=== PATIENT | female | born 1970 | race African-American/Black ===

== ENCOUNTER 2016-12-01 20:47 | Emergency (ER) | payer OTHER ==
[~2016-12-01] VITALS: Ht 172.7 cm; Wt 78.0 kg
[~2016-12-01 20:47] MED LIST: MACR100C PO; OXYC-360 PO; Z.0.NO CURRENT MEDS
[2016-12-01 20:54] VITALS: BP 184/106; PULSE 93; RESP 15; TEMP 98.8; O2SAT 98
[2016-12-01] MEDS ORDERED: AMLO10TA2 PO (21:27)
[2016-12-01 21:45] VITALS: BP 180/112; O2SAT 99
--- NOTE | 2016-12-01 21:57 | PD ---
HPI Chief Complaint: Chest Pain Time Seen by Provider: 21:53 Travel History International Travel<30 days: No Contact w/Intl Traveler<30days: No Traveled to known affect area: No History of Present Illness HPI 46-year-old female that presents to the ED for evaluation of chest pain. Per patient she's had this chest pain since yesterday. Per patient she also has a headache, sore throat, cough and congestion. Per patient also started yesterday. Per patient she has some chills as well and she took some cold medication with some relief. Per patient the chest pain is not constant but comes and goes. Cough doesn't really make it worse but does aggravated. Per patient she has no history of asthma but she does have a history of high blood pressure and smoking. She has no abdominal pain. Nausea or vomiting. 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 She has no allergies to medication. No trauma. No recent heavy lifting. No allergies to medication. No urinary or bowel movement issues. Pain per patient is 5 out of 10. PFSH Past Medical History Cancer: No Cardiovascular Problems: No Diabetes: No Diminished Hearing: No Glaucoma: No Hepatitis: No Hiatal Hernia: No Hypertension: Yes Medical other: No Respiratory: No Thyroid Disease: No ?: Not Past Surgical History Gynecologic Surgery: Yes (TUBAL LIG.) Hysterectomy: Yes (PARTIAL 2008) Oral Surgery: Yes (EXC. MASS LEFT NECK) Pacemaker: No Other Surgery: Yes Social History Alcohol Use: Yes (SCOIALY) Tobacco Use: Yes (08/03 PPD) Substance Use: No Allergies-Medications (Allergen,Severity, Reaction): Coded Allergies: No Known Allergies (Verified , 12/01/16) Reported Meds & Prescriptions Reported Meds & Active Scripts Active Tessalon Perles (Benzonatate) 100 Mg Cap 200 Mg PO TID PRN Tamiflu (Oseltamivir Phosphate) 75 Mg Cap 75 Mg PO BID 5 Days Reported Amlodipine (Amlodipine Besylate) 10 Mg Tab 10 Mg PO DAILY Review of Systems Except as stated in HPI: all other systems reviewed are Neg Physical Exam Narrative GENERAL: Well-nourished, well-developed patient in no apparent distress. SKIN: Warm and dry. HEAD: Atraumatic. Normocephalic. EYES: Pupils equal and round reactive to light and accommodation. No scleral icterus. No injection or drainage. ENT: No nasal bleeding or discharge. Mucous membranes pink and moist. TMs are clear with no sign of infection or perforation. No mastoid tenderness. Ear canals are intact bilaterally. No lymphadenopathy. Nostril mucosa is red and moist with clear mucus noted. No sinus tenderness to palpation noted. Tonsils are not enlarged or swollen. No ulvua Deviation. Tongue is midline. NECK: Trachea midline. No JVD. No meningeal signs noted CARDIOVASCULAR: Regular rate and rhythm. RESPIRATORY: No accessory muscle use. Clear to auscultation. Breath sounds equal bilaterally. GASTROINTESTINAL: Abdomen soft, non-tender, nondistended. Hepatic and splenic margins not palpable. MUSCULOSKELETAL: Extremities without clubbing, cyanosis, or edema. No obvious deformities. NEUROLOGICAL: Awake and alert. No obvious cranial nerve deficits. Motor grossly within normal limits. Five out of 5 muscle strength in the arms and legs. Normal speech. PSYCHIATRIC: Appropriate mood and affect; insight and judgment normal. Data Data Last Documented VS Vital Signs Date Time Temp Pulse Resp B/P Pulse Ox O2 Delivery O2 Flow Rate FiO2 12/01/16 21:45 180/112 12/01/16 21:45 99 Room Air 12/01/16 20:54 98.8 93 15 Orders Electrocardiogram (12/01/16 ) Electrocardiogram (12/01/16 21:29) Basic Metabolic Panel (Bmp) (12/01/16 21:29) Ckmb (Isoenzyme) Profile (12/01/16 21:29) Complete Blood Count With Diff (12/01/16 21:29) Magnesium (Mg) (12/01/16 21:29) Troponin I (12/01/16 21:29) Chest, Single Ap (12/01/16 21:29) Ecg Monitoring (12/01/16 21:29) Bilateral Bp Monitoring (12/01/16 21:29) Iv Access Insert/Monitor (12/01/16 21:29) Oximetry (12/01/16 21:29) Influenzae A/B Antigen (12/01/16 21:29) Oseltamivir (Tamiflu) (12/01/16 22:45) CKMB (12/01/16 21:38) CKMB% (12/01/16 21:38) Labs Laboratory Tests Test 12/01/16 21:38 White Blood Count 6.3 TH/MM3 Red Blood Count 3.99 MIL/MM3 Hemoglobin 12.4 GM/DL Hematocrit 36.1 % Mean Corpuscular Volume 90.4 FL Mean Corpuscular Hemoglobin 31.0 PG Mean Corpuscular Hemoglobin 34.3 % Concent Red Cell Distribution Width 14.2 % Platelet Count 263 TH/MM3 Mean Platelet Volume 7.9 FL Neutrophils (%) (Auto) 62.4 % Lymphocytes (%) (Auto) 21.0 % Monocytes (%) (Auto) 12.1 % Eosinophils (%) (Auto) 3.9 % Basophils (%) (Auto) 0.6 % Neutrophils # (Auto) 4.0 TH/MM3 Lymphocytes # (Auto) 1.3 TH/MM3 Monocytes # (Auto) 0.8 TH/MM3 Eosinophils # (Auto) 0.2 TH/MM3 Basophils # (Auto) 0.0 TH/MM3 CBC Comment DIFF FINAL Differential Comment Sodium Level 137 MEQ/L Potassium Level 3.7 MEQ/L Chloride Level 104 MEQ/L Carbon Dioxide Level 26.3 MEQ/L Anion Gap 7 MEQ/L Blood Urea Nitrogen 12 MG/DL Creatinine 0.72 MG/DL Estimat Glomerular Filtration 106 ML/MIN Rate Random Glucose 94 MG/DL Calcium Level 8.7 MG/DL Magnesium Level 2.1 MG/DL Total Creatine Kinase 119 U/L Troponin I LESS THAN 0.02 NG/ML MDM Medical Decision Making Medical Screen Exam Complete: Yes Emergency Medical Condition: Yes Medical Record Reviewed: Yes Interpretation(s) CBC & BMP Diagram 12/01/16 21:38 troponin negative Last Impressions Chest X-Ray 12/01/162128 Signed Impressions: Service Date/Time: November 21:51 - CONCLUSION: No acute disease. Flex Fowler MD flu positive for influenza A EKG shows sinus rhythm with no sign of acute ischemia or arrhythmia. Differential Diagnosis Pneumonia versus sinusitis versus bronchitis versus ACS versus chest pain versus a typical chest pain Narrative Course 46-year-old female that presents to the ED for evaluation of chest pain and possible cold-like symptoms. Patient was properly examined and was found to have signs and symptoms of unclear etiology. She does complain of chest pain and she does have an unfortunate some comorbidities for ACS. Most of her symptoms appear to be more related to cold however. At this time I do recommend workup for both by adding an influenza test to her chest pain workup. Patient is agreement with this plan. Patient was given aspirin here. Labs and imaging showed positive for flow. This time case was discussed in my attending who agrees with plan. This likely is related to the flu. Patient will be treated for this with Tamiflu and Tessalon Perles. Told to take OTC meds. Given note for work. Told to take lots of was. Motrin or Tylenol for pain. Follow-up with PCP. See ED worsening symptoms. Diagnosis Primary Impression: Influenza A Patient Instructions: General Instructions Additional Instructions: Motrin and Tylenol for pain and fever. You can use [id number] antihistamine as well as well as Mucinex as needed for runny nose and congestion. Cough drops for cough as needed. Drink plenty of fluids. Follow-up with PCP. See ED for worsening symptoms. Med/Other Pt SpecificInfo: Prescription(s) given Scripts Benzonatate (Tessalon Perles)100 Mg [id number] Mg PO TID PRN (COUGH) #15 CAP Ref 0 Prov:Stewart Phipps MD 12/01/16 Oseltamivir (Tamiflu)75 Mg Cap75 Mg PO BID 5 Days Ref 0 Prov:Stewart Phipps MD 12/01/16 Disposition: 01 DISCHARGE HOME Condition: Stable Renard Ferrera December 01, 2016 21:57 Renard Ferrera December 01, 2016 21:57
--- NOTE | 2016-12-01 22:18 | RADRPT ---
EXAM DATE/TIME: 12/01/2016 21:51 [facility] COMPARISON: No previous studies available for comparison. INDICATIONS : Chest pain. MEDICAL HISTORY : None. SURGICAL HISTORY : None. ENCOUNTER: Initial ACUITY: 2 days PAIN SCORE: 9/10 LOCATION: Bilateral upper chest FINDINGS: A single view of the chest demonstrates the lungs to be symmetrically aerated without evidence of mas s, infiltrate or effusion. The cardiomediastinal contours are unremarkable. Osseous structures are intact. CONCLUSION: No acute disease. Flex Fowler MD on December 01, 2016 at 22:15 Board Certified Radiologist. This report was verified electronically.
[2016-12-01 22:25] LABS: BASOPHIL % 0.6 % (0.0-2.0); EOSINOPHIL # 0.2 TH/MM3 (0-0.4); EOSINOPHIL % 3.9 % (0.0-4.0); HEMATOCRIT 36.1 % (35.0-46.0); HEMO FLAGS DIFF FINAL; LYMPHOCYTE # 1.3 TH/MM3 (1.0-4.8); MEAN CELL VOLUME 90.4 FL (80.0-100.0); MEAN CORPUSCULAR HGB CONC 34.3 % (32.0-36.0); MONO % 12.1 % (0.0-8.0); NEUT % 62.4 % (16.0-70.0); PLATELET COUNT 263 TH/MM3 (150-450); RED BLOOD COUNT 3.99 MIL/MM3 (4.00-5.30); RED CELL DISTRIBUTION WIDTH 14.2 % (11.6-17.2); WHITE BLOOD COUNT 6.3 TH/MM3 (4.0-11.0)
[2016-12-01 22:36] LABS: ANION GAP 7 MEQ/L (5-15); BICARBONATE 26.3 MEQ/L (21.0-32.0); BLOOD UREA NITROGEN 12 MG/DL (7-18); CHLORIDE 104 MEQ/L (98-107); GLOMERULAR FILTRATION RATE 106 ML/MIN (>89); MAGNESIUM 2.1 MG/DL (1.5-2.5); POTASSIUM 3.7 MEQ/L (3.5-5.1); SODIUM (NA) 137 MEQ/L (136-145)
[2016-12-01] MEDS ORDERED: OSEL75 PO (22:38)
[2016-12-01] MEDS ORDERED: BENZ100 PO (22:38)
[2016-12-01 22:40] LABS: CREATINE KINASE 119 U/L (26-192)
[2016-12-01] MEDS ORDERED: OSELTAMIVIR PHOSPHATE 75 MG CAP PO ONE (22:45)
[2016-12-01 22:52] LABS: CKMB LESS THAN 0.5 NG/ML (0.5-3.6)
--- NOTE | 2016-12-02 15:33 | EKG ---
Date Performed: 12/01/2016 Time Performed: 21:33:11 PTAGE: 46 years EKG: Sinus rhythm NONSPECIFIC T-WAVE ABNORMALITY BORDERLINE ECG PREVIOUS TRACING : 10/20/1999 02.19 DOCTOR: Sukhdev Giordano Interpretating Date/Time 12/02/2016 15:28:50
== END 2016-12-01 23:08 | disposition home or self-care (01) ==
LOC: NEPE 20:47
DX: J09.X2 Influenza due to identified novel influenza A virus with other respiratory manifestations (principal); R51 Headache; J02.9 Acute pharyngitis, unspecified; R05 Cough; R94.31 Abnormal electrocardiogram [ECG] [EKG]; I10 Essential (primary) hypertension; F17.210 Nicotine dependence, cigarettes, uncomplicated
CPT/HCPCS: 71010; 80048; 82550; 82552; 83735; 84484; 85025; 87804; 93005

== ENCOUNTER 2018-01-16 00:09 | Emergency (ER) | payer OTHER ==
[~2018-01-16] VITALS: Ht 170.2 cm; Wt 84.5 kg
[~2018-01-16 00:09] MED LIST changes: +AMLO10TA2 PO; +BENZ100 PO; -MACR100C PO; +OSEL75 PO; -OXYC-360 PO; -Z.0.NO CURRENT MEDS
[2018-01-16 00:12] VITALS: BP 146/80; PULSE 87; RESP 18; TEMP 98.5; O2SAT 100
[2018-01-16] MEDS ORDERED: ORPHENADRINE INJ 60 MG/2 ML AMP IM ONE (00:30)
[2018-01-16] MEDS ORDERED: DEXAMETHASONE SOD PHOS 4 MG/ML VIAL IM ONE (00:30)
--- NOTE | 2018-01-16 00:35 | PD ---
HPI Chief Complaint: Pain: Acute or Chronic Time Seen by Provider: 00:30 Travel History International Travel<30 days: No Contact w/Intl Traveler<30days: No Traveled to known affect area: No History of Present Illness HPI 47-year-old female presents to the emergency department complaint of right- sided lower back pain radiating to the right lower extremity. No bladder or bowel dysfunction. No fever chills. Prior history of urinary tract infection. Patient has had episodes of sciatica type pain in the past. Patient denies any injury or fall. Patient took 600 mg of ibuprofen approximately 4 hours prior to arrival to the emergency department minimal benefit. Patient has had symptoms of the past 2-3 days. Patient states ambulation bending lifting her right lower extremity seem to worsen symptoms patient has noted some increasing urinary urgency and duration of urinary stream but no dysuria or fever. Patient is not diabetic. Patient does have history of hypertension has been taking her medication as prescribed. Patient status post tubal ligation and partial hysterectomy. Patient rates pain as moderate to severe. PFSH Past Medical History Narrative Medical Hypertension; partial hysterectomy, tubal ligation; tobacco use; nursing notes reviewed Cancer: No Cardiovascular Problems: No Diabetes: No Diminished Hearing: No Glaucoma: No Hepatitis: No Hiatal Hernia: No Hypertension: Yes Medical other: No Respiratory: No Thyroid Disease: No Tetanus Vaccination: Unknown Influenza Vaccination: Yes ?: Not Past Surgical History Gynecologic Surgery: Yes (TUBAL LIG.) Hysterectomy: Yes Oral Surgery: Yes (EXC. MASS LEFT NECK) Pacemaker: No Other Surgery: Yes Social History Alcohol Use: Yes (SCOIALY) Tobacco Use: Yes (08/03 PPD) Substance Use: No Allergies-Medications (Allergen,Severity, Reaction): Coded Allergies: No Known Allergies (Verified Adverse Reaction, Unknown, 01/16/18) Reported Meds & Prescriptions Reported Meds & Active Scripts Active Robaxin (Methocarbamol) 750 Mg Tab 750 Mg PO Q6HR Medrol Dosepak (Methylprednisolone) 4 Mg Dspk 4 Mg PO DIRECTED Per Pharmacist direction Reported Amlodipine (Amlodipine Besylate) 10 Mg Tab 10 Mg PO DAILY Review of Systems Except as stated in HPI: all other systems reviewed are Neg General / Constitutional: No: Fever, Chills HENT: No: Congestion Cardiovascular: No: Chest Pain or Discomfort Respiratory: No: Shortness of Breath Gastrointestinal: No: Nausea, Vomiting, Abdominal Pain Genitourinary: No: Dysuria, Flank Pain Musculoskeletal: Positive: Pain (right SI pain) Skin: No Rash Neurologic: No: Weakness Endocrine: No: Heat Intolerance, Cold Intolerance Hematologic/Lymphatic: No: Easy Bruising, Lymph Node Enlargement Physical Exam Narrative GENERAL: SKIN: Warm and dry. HEAD: Normocephalic. EYES: No scleral icterus. No injection or drainage. NECK: Supple, trachea midline. No JVD or lymphadenopathy. CARDIOVASCULAR: Regular rate and rhythm without murmurs, gallops, or rubs. RESPIRATORY: Breath sounds equal bilaterally. No accessory muscle use. GASTROINTESTINAL: Abdomen soft, non-tender, nondistended. MUSCULOSKELETAL: No cyanosis, or edema. BACK: Nontender without obvious deformity; reproducible (R) SI tenderness to palpation. No CVA tenderness. Data Data Last Documented VS Vital Signs Date Time Temp Pulse Resp B/P (MAP) Pulse Ox O2 Delivery O2 Flow Rate FiO2 01/16/18 00:12 98.5 87 18 146/80 (102) 100 Orders Orders Dexamethasone Inj (Decadron Inj) (01/16/18 00:30) Orphenadrine Inj (Norflex Inj) (01/16/18 00:30) Urinalysis - C+S If Indicated (01/16/18 00:30) Ed Discharge Order (01/16/18 01:14) Labs Laboratory Tests Test 01/16/18 00:35 Urine Color YELLOW Urine Turbidity CLEAR Urine pH 6.0 Urine Specific [place] 1.020 Urine Protein NEG mg/dL Urine Glucose (UA) NEG mg/dL Urine Ketones NEG mg/dL Urine Occult Blood MOD Urine Nitrite NEG Urine Bilirubin NEG Urine Urobilinogen 1.0 MG/DL Urine Leukocyte Esterase NEG Urine RBC 4-9 /hpf Urine WBC 0-2 /hpf Urine Squamous Epithelial Cells 0-5 /hpf Urine Bacteria NONE /hpf Microscopic Urinalysis Comment CULT NOT INDICATED MDM Medical Decision Making Medical Screen Exam Complete: Yes Emergency Medical Condition: Yes Medical Record Reviewed: Yes Differential Diagnosis Sciatica, sacroiliitis, lumbar disc disease, DJD, degenerative disc disease, HNP , musculoskeletal strain; also to consider but no findings to support cauda equina syndrome Narrative Course Patient is already taking 600 mg of ibuprofen 4 hours prior to arrival to the emergency department therefore will defer additional nonsteroidal anti- inflammatory medication administration patient given dose of Decadron 8 mg IM along with Norflex 60 mg IM Patient notes increased volume of urine output therefore will obtain urinalysis Urinalysis shows few RBCs and blood but no bacteria culture not indicated Patient is stable this time for outpatient management symptoms have improved and pain has decreased from 7/10 to 3-4/10, improved and request discharge to home. Diagnosis Primary Impression: Sacroiliitis Referrals: Primary Care Physician 1 day Patient Instructions: General Instructions Additional Instructions: Follow-up with primary care provider call office in a.m. to schedule follow-up appointment No work 2 days Take medication as prescribed May use ibuprofen/Advil/Motrin 800 mg as often as every 8 hours as needed for pain associated with inflammation avoid high dose nonsteroidal anti- inflammatory use while taking steroids Apply moist heat to low back area for comfort purposes as needed Rest on firm surface Return the emergency department for pain numbness bladder or bowel dysfunction or any concerns Med/Other Pt SpecificInfo: Prescription(s) given Scripts Methocarbamol (Robaxin) 750 Mg Tab 750 MG PO Q6HR for Muscle Spasm, #12 TAB 0 Refills Prov: Luisana Spicer MD 01/16/18 Methylprednisolone Dosepak (Medrol Dosepak) 4 Mg Dspk 4 MG PO DIRECTED, #1 DSPK 0 Refills Per Pharmacist direction Prov: Luisana Spicer MD 01/16/18 Disposition: 01 DISCHARGE HOME Condition: Stable Luisana Spicer MD Jan 16, 2018 00:35
[2018-01-16 00:50] LABS: BILIRUBIN, URINE NEG (NEG); BLOOD, URINE MOD (NEG); GLUCOSE,URINE NEG (NEG); KETONE, URINE NEG (NEG); NITRITE,URINE NEG (NEG); URINE COLOR YELLOW (YELLW/STRAW); URINE LEUKOCYTE ESTERASE NEG (NEG)
[2018-01-16 00:55] LABS: SQUAMOUS EPITHELIAL CELL URINE 0-5 /hpf (0-5); WBC, URINE 0-2 /hpf (0-5)
[2018-01-16] MEDS ORDERED: ROBA750T PO (01:16)
[2018-01-16] MEDS ORDERED: MEDR4PAK PO (01:16)
== END 2018-01-16 01:25 | disposition home or self-care (01) ==
LOC: PHED 00:09
DX: M46.1 Sacroiliitis, not elsewhere classified (principal); R39.15 Urgency of urination; I10 Essential (primary) hypertension; F17.210 Nicotine dependence, cigarettes, uncomplicated
CPT/HCPCS: 81001; 96372; 99283; J1100; J2360